=== PATIENT | male | born 1955 | race Caucasian/White ===

== ENCOUNTER 2019-02-11 19:59 | Emergency (ER) | payer OTHER ==
[~2019-02-11] VITALS: Ht 180.3 cm; Wt 81.7 kg
[~2019-02-11 19:59] MED LIST: ACET500 PO; ACETAMINOPHEN500 MG PO; ASPI325 PO; ASPI325EC PO; CYCL10 PO; LISHYD1012 PO; OXYC5 PO; ROXICODONE5 MG PO
[2019-02-11] MEDS ORDERED: TRAM50 PO (20:53)
== END 2019-02-11 21:07 | disposition home or self-care (01) ==
LOC: ER 19:59
DX: S52.572A Other intraarticular fracture of lower end of left radius, initial encounter for closed fracture (principal); S00.81XA Abrasion of other part of head, initial encounter; I10 Essential (primary) hypertension; Z87.442 Personal history of urinary calculi; Z79.899 Other long term (current) drug therapy; Z79.82 Long term (current) use of aspirin; V18.0XXA Pedal cycle driver injured in noncollision transport accident in nontraffic accident, initial encounter
CPT/HCPCS: 29105; 73090; 99283-25

== ENCOUNTER 2021-08-21 14:48 | Emergency (ER) | payer OTHER ==
[~2021-08-21] VITALS: Ht 172.7 cm; Wt 79.4 kg
[~2021-08-21 14:48] MED LIST changes: +TRAM50 PO
[2021-08-21 15:31] LABS: BASOPHILS ABSOLUTE AUTO 0.02 K/mm3 (0.00-0.23); BASOPHILS PERCENT AUTO 0 % (0-2); EOSINOPHILS ABSOLUTE AUTO 0.01 K/mm3 (0.00-0.68); EOSINOPHILS PERCENT AUTO 0 % (0-6); Hematocrit 41.2 % (37.0-53.0); Hemoglobin 12.9 g/dL (13.5-17.5); IMMATURE GRAN ABSOLUTE AUTO 0.05 K/mm3 (0.00-0.10); IMMATURE GRAN PERCENT AUTO 0 % (0-1); LYMPHOCYTES ABSOLUTE AUTO 0.73 K/mm3 (0.84-5.20); LYMPHOCYTES PERCENT AUTO 5 % (21-46); MONOCYTES ABSOLUTE AUTO 1.33 K/mm3 (0.16-1.47); MONOCYTES PERCENT AUTO 9 % (4-13); Mean Corpuscular HGB 28.7 pg (26.0-34.0); Mean Corpuscular HGB Conc 31.3 g/dL (31.5-36.5); Mean Corpuscular Volume 92 fL (80-100); Mean Platelet Volume 9.7 fL (9.1-12.4); NEUTROPHILS ABSOLUTE AUTO 12.63 K/mm3 (1.96-9.15); NEUTROPHILS PERCENT AUTO 86 % (41-73); Platelet Count 254 K/mm3 (150-400); RDW Coefficient Variation 12.6 % (11.7-14.2); RDW Standard Deviation 42.5 fL (35.1-46.3); Red Blood Cell Count 4.49 M/mm3 (4.30-5.90); White Blood Cell Count 14.77 K/mm3 (4.00-11.30)
[2021-08-21 15:48] LABS: Alanine Aminotransfer (ALT/SGP 23 U/L (12-78); Albumin, Blood 3.1 g/dL (3.4-5.0); Albumin/Globulin Ratio 0.8 (0.8-1.8); Alk Phos 106 U/L (50-136); Anion Gap 9 mmol/L (6-16); Aspartate Aminotrans (AST/SGOT 13 U/L (12-37); Bilirubin, Total 0.6 mg/dL (0.1-1.0); Blood Urea Nitrogen 16 mg/dL (8-24); Bun/Creatinine Ratio 18.6 (12.0-20.0); CO2, Blood 24 mmol/L (21-32); Calcium, Blood 8.4 mg/dL (8.5-10.1); Chloride, Blood 103 mmol/L (98-108); Creatinine, Blood 0.86 mg/dL (0.60-1.20); Globulin, Blood 4.1 g/dL (2.2-4.0); Glomerular Filtration Rate >60 (60-); Glucose, Blood 127 mg/dL (70-99); Potassium, Blood 3.7 mmol/L (3.5-5.5); Sodium, Blood 136 mmol/L (136-145); Total Protein, Blood 7.2 g/dL (6.4-8.2)
[2021-08-21] MEDS ORDERED: Vibramycin100 MG PO (20:05)
[2021-08-21] MEDS ORDERED: Ultram50 MG PO (20:05)
[2022-01-21] MEDS ORDERED: PANT40 PO (07:39)
[2022-01-21] MEDS ORDERED: GABA100 PO (07:39)
[2022-01-21] MEDS ORDERED: TRAM50 PO (07:40)
[2022-01-21] MEDS ORDERED: CYCL10 PO (07:40)
[2022-01-21] MEDS ORDERED: AMOCLA875 PO (11:44)
[2022-01-21] MEDS ORDERED: PROBIOTIC1 EA13 PO (11:44)
== END 2021-08-21 20:19 | disposition home or self-care (01) ==
LOC: ER 14:48
PROVIDERS: Physician Assistant
DX: M79.18 Myalgia, other site (principal); I10 Essential (primary) hypertension; Z79.899 Other long term (current) drug therapy
CPT/HCPCS: 36415; 71045; 80053; 84484; 85025; 93005; 93010; 96374; 99284-25; A9270; J1885

== ENCOUNTER 2021-08-24 08:19 | Emergency (ER) | payer OTHER ==
[~2021-08-24] VITALS: Ht 177.8 cm; Wt 80.7 kg
[~2021-08-24 08:19] MED LIST changes: +Ultram50 MG PO; +Vibramycin100 MG PO
[2021-08-24] MEDS ORDERED: Robaxin750 MG PO (10:36)
== END 2021-08-24 10:40 | disposition home or self-care (01) ==
LOC: ER 08:19
DX: S16.1XXA Strain of muscle, fascia and tendon at neck level, initial encounter (principal); S29.012A Strain of muscle and tendon of back wall of thorax, initial encounter; M62.838 Other muscle spasm; I10 Essential (primary) hypertension; Z79.82 Long term (current) use of aspirin; Z79.899 Other long term (current) drug therapy; F17.220 Nicotine dependence, chewing tobacco, uncomplicated; X58.XXXA Exposure to other specified factors, initial encounter
CPT/HCPCS: 96372; 99283-25; A9270; J1885

== ENCOUNTER 2021-09-15 16:11 | Emergency (ER) | payer OTHER ==
[~2021-09-15] VITALS: Ht 180.3 cm; Wt 79.4 kg
[~2021-09-15 16:11] MED LIST changes: +Robaxin750 MG PO
[2021-09-15] MEDS ORDERED: LIDO700A20 TOP (17:13)
[2021-09-15] MEDS ORDERED: CYCL10 PO (17:13)
== END 2021-09-15 17:40 | disposition home or self-care (01) ==
LOC: ER 16:11
DX: M54.6 Pain in thoracic spine (principal); M62.830 Muscle spasm of back; I10 Essential (primary) hypertension; F17.220 Nicotine dependence, chewing tobacco, uncomplicated; Z96.653 Presence of artificial knee joint, bilateral; Z79.899 Other long term (current) drug therapy
CPT/HCPCS: 71046; A9270; J1885

== ENCOUNTER 2021-09-19 09:26 | Emergency (ER) | payer OTHER ==
[~2021-09-19] VITALS: Ht 180.3 cm; Wt 79.4 kg
[~2021-09-19 09:26] MED LIST changes: +LIDO700A20 TOP
[2021-09-19] MEDS ORDERED: CYCL10 PO (11:54)
== END 2021-09-19 12:25 | disposition home or self-care (01) ==
LOC: ER 09:26
DX: S29.012A Strain of muscle and tendon of back wall of thorax, initial encounter (principal); I10 Essential (primary) hypertension; F17.220 Nicotine dependence, chewing tobacco, uncomplicated; F12.90 Cannabis use, unspecified, uncomplicated; F15.11 Other stimulant abuse, in remission; Z79.82 Long term (current) use of aspirin; Z79.899 Other long term (current) drug therapy; X58.XXXA Exposure to other specified factors, initial encounter; Y92.9 Unspecified place or not applicable
CPT/HCPCS: J1885

== ENCOUNTER 2021-12-03 02:20 | Day surgery (SDC) | payer OTHER | END 2021-12-03 23:45 | disposition home or self-care (01) | LOC: WOUND 02:20 | DX: S11.80XD Unspecified open wound of other specified part of neck, subsequent encounter (principal); I10 Essential (primary) hypertension | CPT/HCPCS: G0463 ==

== ENCOUNTER 2021-12-08 16:09 | Day surgery (SDC) | payer OTHER | END 2021-12-08 23:31 | disposition home or self-care (01) | LOC: WOUND 16:09 | DX: S11.80XD Unspecified open wound of other specified part of neck, subsequent encounter (principal) | CPT/HCPCS: G0463 ==

== ENCOUNTER 2021-12-12 01:13 | Day surgery (SDC) | payer OTHER | END 2021-12-12 23:14 | disposition home or self-care (01) | LOC: WOUND 01:13 | DX: S11.80XD Unspecified open wound of other specified part of neck, subsequent encounter (principal); X58.XXXD Exposure to other specified factors, subsequent encounter ==

== ENCOUNTER 2021-12-15 02:29 | Day surgery (SDC) | payer OTHER | END 2021-12-15 23:21 | disposition home or self-care (01) | LOC: WOUND 02:29 | DX: S11.80XA Unspecified open wound of other specified part of neck, initial encounter (principal) ==

== ENCOUNTER 2021-12-19 02:20 | Day surgery (SDC) | payer OTHER | END 2021-12-19 23:25 | disposition home or self-care (01) | LOC: WOUND 02:20 | DX: S11.80XD Unspecified open wound of other specified part of neck, subsequent encounter (principal) ==

== ENCOUNTER 2021-12-22 01:48 | Day surgery (SDC) | payer OTHER | END 2021-12-22 23:53 | disposition home or self-care (01) | LOC: WOUND 01:48 | DX: S11.80XA Unspecified open wound of other specified part of neck, initial encounter (principal); X58.XXXA Exposure to other specified factors, initial encounter ==

== ENCOUNTER 2021-12-24 00:20 | Day surgery (SDC) | payer OTHER | END 2021-12-24 23:02 | disposition home or self-care (01) | LOC: WOUND 00:20 | DX: T81.89XA Other complications of procedures, not elsewhere classified, initial encounter (principal); Y83.9 Surgical procedure, unspecified as the cause of abnormal reaction of the patient, or of later complication, without mention of misadventure at the time of the procedure | CPT/HCPCS: G0463 ==

== ENCOUNTER 2021-12-26 01:47 | Day surgery (SDC) | payer OTHER | END 2021-12-26 23:35 | disposition home or self-care (01) | LOC: WOUND 01:47 | DX: S11.80XD Unspecified open wound of other specified part of neck, subsequent encounter (principal); X58.XXXD Exposure to other specified factors, subsequent encounter | CPT/HCPCS: G0463 ==

== ENCOUNTER 2021-12-29 03:46 | Day surgery (SDC) | payer OTHER | END 2021-12-29 23:21 | disposition home or self-care (01) | LOC: WOUND 03:46 | DX: S11.80XD Unspecified open wound of other specified part of neck, subsequent encounter (principal); X58.XXXD Exposure to other specified factors, subsequent encounter | CPT/HCPCS: G0463 ==

== ENCOUNTER 2021-12-31 00:52 | Day surgery (SDC) | payer OTHER | END 2021-12-31 23:46 | disposition home or self-care (01) | LOC: WOUND 00:52 | DX: S11.80XD Unspecified open wound of other specified part of neck, subsequent encounter (principal) | CPT/HCPCS: G0463 ==

== ENCOUNTER 2022-01-02 00:45 | Day surgery (SDC) | payer OTHER | END 2022-01-02 23:03 | disposition home or self-care (01) | LOC: WOUND 00:45 | DX: S11.80XD Unspecified open wound of other specified part of neck, subsequent encounter (principal); X58.XXXD Exposure to other specified factors, subsequent encounter | CPT/HCPCS: G0463 ==

== ENCOUNTER 2022-01-07 01:19 | Day surgery (SDC) | payer OTHER ==
[2022-01-21] MEDS ORDERED: GABA100 PO (07:39)
[2022-01-21] MEDS ORDERED: PANT40 PO (07:39)
[2022-01-21] MEDS ORDERED: CYCL10 PO (07:40)
[2022-01-21] MEDS ORDERED: TRAM50 PO (07:40)
[2022-01-21] MEDS ORDERED: PROBIOTIC1 EA13 PO (11:44)
[2022-01-21] MEDS ORDERED: AMOCLA875 PO (11:44)
== END 2022-01-07 23:48 | disposition home or self-care (01) ==
LOC: WOUND 01:19
DX: S11.80XD Unspecified open wound of other specified part of neck, subsequent encounter (principal); X58.XXXD Exposure to other specified factors, subsequent encounter
CPT/HCPCS: G0463

== ENCOUNTER → 2022-01-09 | Outpatient (CLI) | payer OTHER ==
[2022-01-09 17:32] LABS: BODY FLUID RBC 0.016 M/mm3 (0-0)
[2022-01-09 17:45] LABS: RBC Count, Synovial Fluid 16000 /mm3 (0-0); WBC Count, Synovial Fluid 25240 /mm3 (0-180)
[2022-01-09 18:21] LABS: Lymphs, Synovial Fluid 1 % (0-15); Monocytes/Macrophages, Synovia 6 % (0-65); Neutrophils, Synovial Fluid 93 % (0-24)
[2022-01-09 18:24] LABS: Appearance, Synovial Fluid Cloudy (Clear); Color, Synovial Fluid Yellow (None-P Yel)
== END | disposition home or self-care (01) ==
LOC: LAB SHORT 14:50
PROVIDERS: Family Medicine
DX: M25.561 Pain in right knee (principal)
CPT/HCPCS: 87070; 87075; 87077; 87186; 87205; 89051

== ENCOUNTER 2022-01-12 01:15 | Day surgery (SDC) | payer OTHER | END 2022-01-12 23:23 | disposition home or self-care (01) | LOC: WOUND 01:15 | DX: S11.80XD Unspecified open wound of other specified part of neck, subsequent encounter (principal) | CPT/HCPCS: G0463 ==

== ENCOUNTER 2022-01-16 01:12 | Day surgery (SDC) | payer OTHER | END 2022-01-16 23:08 | disposition home or self-care (01) | LOC: WOUND 01:12 | DX: S11.80XD Unspecified open wound of other specified part of neck, subsequent encounter (principal) | CPT/HCPCS: G0463 ==

== ENCOUNTER 2022-01-20 01:59 | Day surgery (SDC) | payer OTHER ==
[2022-01-21] MEDS ORDERED: GABA100 PO (07:39)
[2022-01-21] MEDS ORDERED: PANT40 PO (07:39)
[2022-01-21] MEDS ORDERED: CYCL10 PO (07:40)
[2022-01-21] MEDS ORDERED: TRAM50 PO (07:40)
[2022-01-21] MEDS ORDERED: AMOCLA875 PO (11:44)
[2022-01-21] MEDS ORDERED: PROBIOTIC1 EA13 PO (11:44)
== END 2022-01-20 23:58 | disposition home or self-care (01) ==
LOC: WOUND 01:59
DX: S11.80XD Unspecified open wound of other specified part of neck, subsequent encounter (principal); X58.XXXD Exposure to other specified factors, subsequent encounter
CPT/HCPCS: G0463

== ENCOUNTER → 2022-03-17 | Outpatient (CLI) | payer OTHER ==
[~2022-03-17] MED LIST changes: +AMOCLA875 PO; +GABA100 PO; +PANT40 PO; +PROBIOTIC1 EA13 PO
[2022-03-17 11:57] LABS: BODY FLUID RBC 0.019 M/mm3 (0-0)
[2022-03-17 12:17] LABS: RBC Count, Synovial Fluid 19000 /mm3 (0-0); WBC Count, Synovial Fluid 4350 /mm3 (0-180)
[2022-03-17 12:50] LABS: Appearance, Synovial Fluid Hazy (Clear); Color, Synovial Fluid Yellow (None-P Yel); Eos, Synovial Fluid 2 % (0-2); Lymphs, Synovial Fluid 4 % (0-15); Monocytes/Macrophages, Synovia 12 % (0-65); Neutrophils, Synovial Fluid 82 % (0-24)
== END ==
LOC: LAB 10:53 → LAB SHORT 10:53
PROVIDERS: Orthopaedic Surgery
DX: M25.561 Pain in right knee (principal); T84.53XD Infection and inflammatory reaction due to internal right knee prosthesis, subsequent encounter; Z96.651 Presence of right artificial knee joint
CPT/HCPCS: 87070; 87075; 87205; 89051